=== PATIENT | female | born 1990 | race Caucasian/White ===

== ENCOUNTER 2017-09-07 09:17 | Emergency (ER) | payer OTHER ==
[~2017-09-07] VITALS: Wt 86.7 kg
[~2017-09-07 09:17] MED LIST: AMOX500T; CETI10CA PO; GUAI120S26 PO; IBUP-1542 PO; IBUP-727; bcp; benadryl
[2017-09-07] MEDS ORDERED: ACETAMINOPHEN 325 MG TAB PO STA (09:51)
[2017-09-07 10:07] LABS: URINE BLOOD (Dip) POC 3+ (NEGATIVE)
--- NOTE | 2017-09-07 10:57 | RADRPT ---
PROCEDURE: US Pelvis. CLINICAL INDICATION: Left pelvic pain. TECHNIQUE: The pelvis was evaluated with transabdominal and transvaginal sonography in the axial a nd sagittal planes. COMPARISON: No prior study is available for comparison. FINDINGS: Uterus: 8.1 x 3.8 x 5.0 cm. Endometrium: 4.1 mm. An IUD is present in the endometrial canal in satisfactory position. Right ovary: 3.3 x 1.7 x 1.8 cm. Left ovary: 2.4 x 1.6 x 1.4 cm. Uterine masses: None. Ovarian masses: None. Color Doppler and pulsed Doppler sonography demonstrate normal flow to the ova donovan. Other pelvic masses: None. Free fluid: None. IMPRESSION: 1. IUD in satisfactory position within the endometrial canal. 2. Otherwise unremarkable pelvic ultrasound. RPTAT: QQ .Steven Mcneill MD, Date Time Electronically viewed and signed by .Steven Mcneill MD, on 09/07/2017 10:56 .R/
[2017-09-07] MEDS ORDERED: NITR-58 PO (11:02)
[2017-09-07] MEDS ORDERED: IBUP-1542 PO (11:02)
--- NOTE | 2017-09-07 11:08 | ERD ---
ER Documentation Chief Complaint Chief Complaint ABD PAIN X 3 DAYS LOWER LEFT PAIN HPI 26-year-old female presents to the emergency department complaining of left lower quadrant pelvic pain. Patient states that over the last 3 days, she has a left lower quadrant pelvic pain that she believes is secondary to urinary tract infection as the symptoms are similar to what she has had before. She reports no hematuria but did have some dysuria beginning over the last 24 hours. She reports no fevers, chills. She reports no abnormal vaginal bleeding. Her pain is localized to left lower quadrant does not radiate. It is non-provoked and described only as mild to moderate at this time. ROS All systems reviewed and are negative except as per history of present illness. Medications Home Meds Active Scripts Ibuprofen* (Motrin*) 600 Mg Tab, 600 MG PO Q6 for PAIN, #30 TAB Prov:KHUSHI GUZMAN 09/07/17 Nitrofurantoin Monohyd Macrocr* (Macrobid*) 100 Mg Capsr, 100 MG PO BID for 7 Days, CAP Prov:KHUSHI GUZMAN 09/07/17 Ibuprofen* (Motrin*) 600 Mg Tab, 600 MG PO Q6H Y for PAIN AND OR ELEVATED TEMP, #30 TAB Prov:CINDY HURTADO NP 01/29/16 Cetirizine Hcl* (Zyrtec*) 10 Mg Capsule, 10 MG PO DAILY, #30 TAB.CHEW Prov:CINDY HURTADO NP 01/29/16 Lwzhnqwacat-S-Lgljhwfmib Hb* (Guaifenesin* DM Syrup) 120 Ml Syrup, 10 ML PO Q4H Y for COUGH for 120 Days, ML Prov:CINDY HURTADO NP 01/29/16 Reported Medications Ibuprofen (Motrin) 600 Mg Tablet 04/14/10 Amoxicillin Trihydrate (Amoxicillin) 500 Mg Tablet 04/14/10 [bcp] No Conflict Check 04/11/10 [benadryl] No Conflict Check 04/11/10 Allergies Allergies: Coded Allergies: No Known Allergies (Verified Allergy, Mild, 04/14/10) PMhx/Soc Medical and Surgical Hx: pt denies Surgical Hx History of Surgery: No Anesthesia Reaction: No Hx Neurological Disorder: No Hx Respiratory Disorders: No Hx Cardiac Disorders: No Hx Psychiatric Problems: No Hx Miscellaneous Medical Probl: Yes (HX of UTI) Hx Alcohol Use: Yes (social drinker) Hx Substance Use: No Hx Tobacco Use: No Smoking Status: Never smoker FmHx Noncontributory for chief complaint Physical Exam Vitals Vital Signs Date Time Temp Pulse Resp B/P Pulse Ox O2 Delivery O2 Flow Rate FiO2 09/07/17 09:19 98.1 82 18 109/78 99 Physical Exam General: well developed, well nourished, in no distress. Neuro: Normal speech, gait, balance Abdomen: Soft, nontender, nondistended. No left lower quadrant tenderness. No rebound or guarding. No CVA tenderness. Results 24 hrs Laboratory Tests Test 09/07/17 10:08 Bedside Urine pH (LAB) 7.0 Bedside Urine Protein (LAB) 1+ Bedside Urine Glucose (UA) Negative Bedside Urine Ketones (LAB) Negative Bedside Urine Blood 3+ Bedside Urine Nitrite (LAB) Negative Bedside Urine Leukocyte Esterase (L Negative Current Medications Medications (Trade) Dose Ordered Sig/Gabriela Route PRN Reason Start Time Stop Time Status Last Admin Dose Admin Acetaminophen (Tylenol Tab) 650 mg ONCE STAT PO 09/07/17 09:51 09/07/17 09:52 DC 09/07/17 09:55 Procedures/MDM Patient was taken to a room, seen and examined. Diagnostic tests were ordered and appreciated including her ultrasound. Results were discussed with her. She remained nontoxic in appearance. Medical decision makin-year-old otherwise healthy female presents with left lower quadrant abdominal pain of uncertain etiology. 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 At this time, she is not , has a normal ultrasound with no evidence of ovarian cyst. Her urinalysis does not seem to indicate a urinary tract infection, but the patient's symptoms are consistent with a UTI and she is requesting antibiotics at this time. I have discussed this possible treatment with her and she feels comfortable being discharged home at this time. Departure Diagnosis: Primary Impression: Pelvic pain Patient Instructions: Pelvic Pain, Unknown Cause Additional Instructions: Please see your doctor or return here if not improving within the next 2-3 days. If anything becomes worse, please return sooner. KHUSHI GUZMAN Sep 07, 2017 11:08
== END 2017-09-07 11:54 | disposition home or self-care (01) ==
LOC: FTE 09:17
DX: R10.2 Pelvic and perineal pain (principal)
CPT/HCPCS: 76830; 76856; 81003; Z7502; Z7610